=== PATIENT | female | born 1990 | race American Indian/Alaskan Native ===

== ENCOUNTER 2020-01-26 03:43 | Emergency (ER) | payer MEDICAID ==
--- NOTE | 2020-01-26 05:34 | XRay Report ---
CHEST 2 VIEWS, 01/26/2020 4:10 AM INDICATION: Chest pain COMPARISON: None FINDINGS: Support devices: None. Heart: The cardiac silhouette is normal in size. Lungs/pleura: The lungs are clear of focal airspace disease or significant pleural effusion. Additional findings: No significant acute abnormality. IMPRESSION: 1. No evidence of acute cardiopulmonary process. Signer Name: Lolis Street MD Signed: 01/26/2020 5:30 AM Workstation Name: [id number]
[2020-01-26 07:45] VITALS: BP 152/104
--- NOTE | 2020-01-26 07:45 | Emergency Department Report ---
ED General Adult HPI - General Chief complaint: Chest Pain Stated complaint: CHEST PAIN Time Seen by Provider: 01/26/20 07:35 Source: patient Mode of arrival: Ambulatory Limitations: No Limitations - History of Present Illness Initial comments: 29-year-old [place] female resents emergency department complaining of a few day history of cough congestion coryza runny nose with fever since sensation sinus pressure was beginning to progressed to some discomfort to the chest with deep breathing. -: Gradual, days(s) (3) Radiation: non-radiation Quality: dull Consistency: constant Improves with: none Worsens with: none Associated Symptoms: chest pain, cough, loss of appetite, nausea/vomiting (Nausea with no vomiting). denies: confusion, diaphoresis, syncope, weakness Treatments Prior to Arrival: none - Related Data Previous Rx's Medication Instructions Recorded Last Taken Type Benzonatate [Tessalon Perles] 100 mg PO Q8HR #20 capsule 01/26/20 Unknown Rx Ketorolac [Toradol] 10 mg PO Q6H PRN #14 tablet 01/26/20 Unknown Rx Allergies Allergy/AdvReac Type Severity Reaction Status Date / Time No Known Allergies Allergy Unverified 01/26/20 03:50 ED Review of Systems ROS: Stated complaint: CHEST PAIN Other details as noted in HPI Comment: All other systems reviewed and negative ED Past Medical Hx - Past Medical History Previous Medical History?: No - Surgical History Past Surgical History?: No - Social History Smoking Status: Never Smoker Substance Use Type: None - Medications Home Medications: Home Medications Medication Instructions Recorded Confirmed Last Taken Type Benzonatate [Tessalon Perles] 100 mg PO Q8HR #20 capsule 01/26/20 Unknown Rx Ketorolac [Toradol] 10 mg PO Q6H PRN #14 tablet 01/26/20 Unknown Rx ED Physical Exam - General Limitations: No Limitations General appearance: alert, in no apparent distress - Head Head exam: Present: atraumatic, normocephalic - Eye Eye exam: Present: normal appearance - ENT ENT exam: Present: mucous membranes moist, other (Nasal congestion bilaterally. Positive rhinitis is fair airway patent tongue and uvula are midline) - Neck Neck exam: Present: normal inspection, full ROM. Absent: lymphadenopathy - Respiratory Respiratory exam: Present: normal lung sounds bilaterally. Absent: respiratory distress, wheezes, rales, rhonchi, chest wall tenderness - Cardiovascular Cardiovascular Exam: Present: regular rate, normal rhythm (No tachycardia). Absent: systolic murmur, diastolic murmur, rubs, gallop - GI/Abdominal GI/Abdominal exam: Present: soft, normal bowel sounds. Absent: distended, tenderness - Extremities Exam Extremities exam: Present: normal inspection, normal capillary refill - Back Exam Back exam: Present: normal inspection. Absent: CVA tenderness (R), CVA tenderness (L), muscle spasm - Neurological Exam Neurological exam: Present: alert, oriented X3 - Psychiatric Psychiatric exam: Present: normal affect, normal mood - Skin Skin exam: Present: warm, dry, intact, normal color. Absent: rash ED Course Vital Signs 01/26/20 03:48 Temperature 98.6 F Pulse Rate 114 H Respiratory 18 Rate Blood Pressure 153/99 O2 Sat by Pulse 96 Oximetry ED Medical Decision Making - Radiology Data Radiology results: report reviewed Referring Physician:SALTY URENAPatient Name:HAILE SANDERSPatient ID:[id number] of :[id number]:FemaleAccession:[id number] Date:[id number] Status:Finalized Findings [facility] [address] [place] [address] XRay Report Signed Patient: HAILE SANDERS MR#: [id number] : 1990 Acct:[id number] Age/Sex: 29 / F ADM Date: 01/26/20 Loc: ED Attending Dr: Ordering Physician: SALTY URENA MD Date of Service: 01/26/20 Procedure(s): XR chest routine 2V Accession Number(s): [id number] cc: ED MD ROMEL Fluoro Time In Minutes: CHEST 2 VIEWS, 01/26/2020 4:10 AM INDICATION: Chest pain COMPARISON: None FINDINGS: Support devices: None. Heart: The cardiac silhouette is normal in size. Lungs/pleura: The lungs are clear of focal airspace disease or significant ple ural effusion. Additional findings: No significant acute abnormality. IMPRESSION: 1. No evidence of acute cardiopulmonary process. Signer Name: Lolis Street MD Signed: 01/26/2020 5:30 AM Workstation Name: [id number] Transcribed By: JOHNNY Dictated By: Lolis Street MD Electronically Authenticated By: Lolis Street MD Signed Date/Time: 01/26/20529 DD/ 8 TD/TT: - Medical Decision Making This patient presents with acute cough, most consistent with respiratory tract infection/bronchitis. Differential diagnosis includes bronchitis, asthma, URI viral syndrome,. Presentation not consistent with acute bacterial pneumonia, influenza, asthma, transient airway hyperresponsiveness. Presentation not consistent with chronic causes of cough (including GERD, asthma, postnasal discharge, medication side effect, CHF, lung cancer or mass). Plan: CXR he had normal results, supportive care, reassess Critical care attestation.: If time is entered above; I have spent that time in minutes in the direct care of this critically ill patient, excluding procedure time. ED Disposition Clinical Impression: Chest pain, Bronchitis Disposition: DC-01 TO HOME OR SELFCARE Is pt being admited?: No Does the pt Need Aspirin: No Condition: Stable Instructions: Chest Pain (ED), Chronic Bronchitis (ED), Acute Bronchitis (ED), Noncardiac Chest Pain (ED) Referrals: SHERITA SANCHEZ MD [Staff Physician] - 3-5 Days
== END 2020-01-26 08:18 | disposition home or self-care (01) ==
LOC: ED 03:43
DX: J40 Bronchitis, not specified as acute or chronic (principal); R07.89 Other chest pain; Z79.899 Other long term (current) drug therapy
CPT/HCPCS: 71046; 93005

== ENCOUNTER 2020-02-23 17:38 | Emergency (ER) | payer MEDICAID ==
[2020-02-23 17:48] VITALS: BP 145/89
--- NOTE | 2020-02-23 21:37 | Emergency Department Report ---
ED General Adult HPI - General Chief complaint: Extremity Problem,Nontraumatic Stated complaint: ABD PAIN/LEG PAIN Time Seen by Provider: 02/23/20 20:44 Source: patient Mode of arrival: Ambulatory Limitations: No Limitations - History of Present Illness Initial comments: 29-year-old -Citizen Of [place] female patient presents with complaints of right thigh pain x5 days. She rates her current pain as a 4/10 in severity states it does improve with ibuprofen [id number]. She admits to a 7-hour car ride 2 days prior to the start of her pain. She denies any history of DVT/PE, leg swelling, shortness of breath/hemoptysis/cough, history of cancer, or hormone use. She describes the pain as achy and states it worsens with sitting still for extended periods of time. Patient states she is concerned because she has history of a norma being placed in her leg in 2014. She denies any numbness/tingling/weakness in her limb. - Related Data Previous Rx's Medication Instructions Recorded Last Taken Type Benzonatate [Tessalon Perles] 100 mg PO Q8HR #20 capsule 01/26/20 Unknown Rx Ketorolac [Toradol] 10 mg PO Q6H PRN #14 tablet 01/26/20 Unknown Rx Allergies Allergy/AdvReac Type Severity Reaction Status Date / Time No Known Allergies Allergy Unverified 01/26/20 03:50 ED Review of Systems ROS: Stated complaint: ABD PAIN/LEG PAIN Other details as noted in HPI Constitutional: denies: chills, fever, malaise, weakness Respiratory: denies: cough, shortness of breath Cardiovascular: denies: chest pain Musculoskeletal: denies: joint swelling Skin: denies: rash, lesions, change in color, change in hair/nails Neurological: denies: numbness, paresthesias ED Past Medical Hx - Past Medical History Hx Hypertension: Yes Hx Diabetes: Yes Hx Sickle Cell Disease: Yes (trait) - Surgical History Additional Surgical History: R leg, L wrist, mass removed from breast - Social History Smoking Status: Never Smoker Substance Use Type: None - Medications Home Medications: Home Medications Medication Instructions Recorded Confirmed Last Taken Type Benzonatate [Tessalon Perles] 100 mg PO Q8HR #20 capsule 01/26/20 Unknown Rx Ketorolac [Toradol] 10 mg PO Q6H PRN #14 tablet 01/26/20 Unknown Rx ED Physical Exam - General Limitations: No Limitations General appearance: alert, in no apparent distress - Head Head exam: Present: atraumatic, normocephalic - Eye Eye exam: Present: normal appearance. Absent: scleral icterus - Respiratory Respiratory exam: Present: normal lung sounds bilaterally. Absent: respiratory distress - Cardiovascular Cardiovascular Exam: Present: regular rate, normal rhythm. Absent: systolic murmur, diastolic murmur, rubs, gallop - Extremities Exam Extremities exam: Present: full ROM - Expanded Lower Extremity Exam Right Upper Leg exam: Present: full ROM, tenderness (Mild lateral tenderness to palpation noted without swelling or erythema). Absent: swelling, laceration Ankle exam: Present: full ROM Neuro vascular tendon exam: Absent: pulse deficit, sensory deficit, extremity cold to touch - Back Exam Back exam: Present: normal inspection - Neurological Exam Neurological exam: Present: alert, oriented X3, normal gait. Absent: motor sensory deficit - Psychiatric Psychiatric exam: Present: normal affect, normal mood - Skin Skin exam: Present: warm, dry, intact, normal color. Absent: rash, cyanosis, diaphoretic, erythema ED Course Vital Signs 02/23/20 17:44 Temperature 98.2 F Pulse Rate 91 H Respiratory 18 Rate Blood Pressure 145/89 O2 Sat by Pulse 99 Oximetry ED Medical Decision Making - Medical Decision Making 29-year-old -Citizen Of [place] female patient presents with complaints of right thigh pain x5 days. She rates her current pain as a 4/10 in severity states it does improve with ibuprofen [id number]. She admits to a 7-hour car ride 2 days prior to the start of her pain. She denies any history of DVT/PE, leg swelling, shortness of breath/hemoptysis/cough, history of cancer, or hormone use. She describes the pain as achy and states it worsens with sitting still for extended periods of time. Patient states she is concerned because she has history of a norma being placed in her leg in 2014. She denies any numbness/tingling/weakness in her limb. Critical care attestation.: If time is entered above; I have spent that time in minutes in the direct care of this critically ill patient, excluding procedure time. ED Disposition Clinical Impression: Right thigh pain Disposition: ELOPED Is pt being admited?: No Condition: Stable Referrals: PRIMARY CARE,MD [Primary Care Provider] - 3-5 Days
== END 2020-02-23 21:40 | disposition left against medical advice (07) ==
LOC: ED 17:38
DX: M79.651 Pain in right thigh (principal); I10 Essential (primary) hypertension; E11.9 Type 2 diabetes mellitus without complications; Z98.890 Other specified postprocedural states; Z79.899 Other long term (current) drug therapy
CPT/HCPCS: 99281